=== PATIENT | female | born 1990 | race American Indian/Alaskan Native ===

== ENCOUNTER 2017-01-29 01:41 | Emergency (ER) | payer SELFPAY ==
[2017-01-29] MEDS ORDERED: TYLENOL ONE (02:18)
[2017-01-29] MEDS ORDERED: TYLENOL PO ONE (02:26)
[2017-01-29 08:19] VITALS: BP 125/80
== END 2017-01-29 08:12 | disposition left against medical advice (07) ==
LOC: ED 01:41
DX: H57.12 Ocular pain, left eye (principal); I10 Essential (primary) hypertension; D57.00 Hb-SS disease with crisis, unspecified; F12.90 Cannabis use, unspecified, uncomplicated; Z53.21 Procedure and treatment not carried out due to patient leaving prior to being seen by health care provider

== ENCOUNTER 2017-05-02 00:01 | Emergency (ER) | payer SELFPAY ==
[2017-05-02 05:37] LABS: Basophils % (Auto) 0.5 % (0.0-1.8); Eosinophils % (Auto) 0.8 % (0.0-4.3); Hematocrit 38.6 % (30.3-42.9); Hemoglobin 13.2 gm/dl (10.1-14.3); Mean Corpuscular HGB Conc 34 % (30-34); Mean Corpuscular Hemoglobin 31 pg (28-32); Mean Corpuscular Volume 90 fl (79-97); Platelet Count 194 K/mm3 (140-440); Red Blood Count 4.29 M/mm3 (3.65-5.03); Red Cell Distribution Width 13.6 % (13.2-15.2); White Blood Count 8.9 K/mm3 (4.5-11.0)
[2017-05-02 05:47] LABS: Anion Gap 21 mmol/L; BUN/Creatinine Ratio 8.88; Blood Urea Nitrogen 8 mg/dL (7-17); Calcium 9.3 mg/dL (8.4-10.2); Carbon Dioxide 22 mmol/L (22-30); Chloride 102.3 mmol/L (98-107); Glucose 88 mg/dL (65-100); Potassium 3.8 mmol/L (3.6-5.0); Sodium 141 mmol/L (137-145)
--- NOTE | 2017-05-02 06:15 | Emergency Department Report ---
ED ENT HPI - General Chief complaint: Sore Throat Stated complaint: NECK PAIN/POSS THYROID Time Seen by Provider: 05/02/17 05:04 Source: patient Mode of arrival: Ambulatory Limitations: No Limitations - History of Present Illness Initial comments: 26-year-old female past medical history hypothyroid disease on methimazole presents with complaint of 3 weeks of mild throat discomfort. Patient is awake alert and oriented 3 slightly hoarse voice no audible wheezing or stridor. Denies any fevers chills nausea vomiting. Slightly decreased appetite. Patient is tolerating solids and liquids without significant difficulty. Patient states she came to the ER because she does not currently have a means to follow-up with primary care if she does not have insurance. Patient denies any chest pain palpitations shortness of breath. MD complaint: sore throat Onset/Timin -: week(s) Location: throat Severity scale (0 -10): 4 Quality: aching Associated Symptoms: sore throat - Related Data Previous Rx's Medication Instructions Recorded Last Taken Type Labetalol [Normodyne TAB] 200 mg PO BID #60 tablet 03/15/15 Unknown Rx Ibuprofen [Motrin 600 MG tab] 600 mg PO Q8H PRN #30 tablet 05/29/16 Unknown Rx Mupirocin [Bactroban 2%] 1 applic TP TID #1 tube 05/29/16 Unknown Rx Sulfamethoxazole/Trimethoprim 1 each PO BID #20 tablet 05/29/16 Unknown Rx [Bactrim DS TAB] Amoxicillin [Trimox CAP] 500 mg PO Q8H #21 capsule 05/02/17 Unknown Rx Ibuprofen [Motrin] 600 mg PO Q8H PRN #25 tablet 05/02/17 Unknown Rx Allergies Allergy/AdvReac Type Severity Reaction Status Date / Time No Known Allergies Allergy Verified 07/31/14 17:18 ED Dental HPI - General Chief complaint: Sore Throat Stated complaint: NECK PAIN/POSS THYROID Time Seen by Provider: 05/02/17 05:04 Source: patient Mode of arrival: Ambulatory Limitations: No Limitations - Related Data Previous Rx's Medication Instructions Recorded Last Taken Type Labetalol [Normodyne TAB] 200 mg PO BID #60 tablet 03/15/15 Unknown Rx Ibuprofen [Motrin 600 MG tab] 600 mg PO Q8H PRN #30 tablet 05/29/16 Unknown Rx Mupirocin [Bactroban 2%] 1 applic TP TID #1 tube 05/29/16 Unknown Rx Sulfamethoxazole/Trimethoprim 1 each PO BID #20 tablet 05/29/16 Unknown Rx [Bactrim DS TAB] Amoxicillin [Trimox CAP] 500 mg PO Q8H #21 capsule 05/02/17 Unknown Rx Ibuprofen [Motrin] 600 mg PO Q8H PRN #25 tablet 05/02/17 Unknown Rx Allergies Allergy/AdvReac Type Severity Reaction Status Date / Time No Known Allergies Allergy Verified 07/31/14 17:18 ED Review of Systems ROS: Stated complaint: NECK PAIN/POSS THYROID Other details as noted in HPI Constitutional: denies: chills, fever Eyes: denies: eye pain, eye discharge, vision change ENT: throat pain. denies: ear pain Respiratory: denies: cough, shortness of breath, wheezing Cardiovascular: denies: chest pain, palpitations Endocrine: no symptoms reported Gastrointestinal: denies: abdominal pain, nausea, diarrhea Genitourinary: denies: urgency, dysuria, discharge Musculoskeletal: denies: back pain, joint swelling, arthralgia Skin: denies: rash, lesions Neurological: denies: headache, weakness, paresthesias Psychiatric: denies: anxiety, depression Hematological/Lymphatic: denies: easy bleeding, easy bruising ED Past Medical Hx - Past Medical History Previous Medical History?: Yes Hx Hypertension: No (PIH) Hx CVA: No Hx Heart Attack/AMI: No Hx Congestive Heart Failure: No Hx Diabetes: No Hx Deep Vein Thrombosis: No Hx Pulmonary Embolism: No Hx GERD: No Hx Liver Disease: No Hx Renal Disease: No Hx of Cancer: No Hx Sickle Cell Disease: Yes (Traits) Hx Arthritis: No Hx Headaches / Migraines: No Hx Seizures: No Hx Kidney Stones: No Hx Psychiatric Treatment: No Hx Asthma: No Hx COPD: No Hx Tuberculosis: No Hx Dementia: No Hx HIV: No Additional medical history: HYPERTHYRODISM - Surgical History Past Surgical History?: No Hx Coronary Stent: No Hx Open Heart Surgery: No Hx Pacemaker: No Hx Internal Defibrillator: No Hx Cholecystectomy: No Hx Appendectomy: No Hx Breast Surgery: No - Social History Smoking Status: Never Smoker Substance Use Type: Alcohol, Marijuana - Medications Home Medications: Home Medications Medication Instructions Recorded Confirmed Last Taken Type Labetalol [Normodyne TAB] 200 mg PO BID #60 tablet 03/15/15 Unknown Rx Ibuprofen [Motrin 600 MG tab] 600 mg PO Q8H PRN #30 tablet 05/29/16 Unknown Rx Mupirocin [Bactroban 2%] 1 applic TP TID #1 tube 05/29/16 Unknown Rx Sulfamethoxazole/Trimethoprim 1 each PO BID #20 tablet 05/29/16 Unknown Rx [Bactrim DS TAB] Amoxicillin [Trimox CAP] 500 mg PO Q8H #21 capsule 05/02/17 Unknown Rx Ibuprofen [Motrin] 600 mg PO Q8H PRN #25 tablet 05/02/17 Unknown Rx ED Physical Exam - General Limitations: No Limitations General appearance: alert, in no apparent distress - Head Head exam: Present: atraumatic, normocephalic - Eye Eye exam: Present: normal appearance, PERRL, EOMI - ENT ENT exam: Present: mucous membranes moist - Expanded ENT Exam Expanded Throat exam: Positive: normal inspection - Neck Neck exam: Present: normal inspection, full ROM, other (no palpable thryoid nodules on exam) - Respiratory Respiratory exam: Present: normal lung sounds bilaterally. Absent: respiratory distress - Cardiovascular Cardiovascular Exam: Present: regular rate, normal rhythm. Absent: systolic murmur, diastolic murmur, rubs, gallop - GI/Abdominal GI/Abdominal exam: Present: soft, normal bowel sounds - Extremities Exam Extremities exam: Present: normal inspection - Back Exam Back exam: Present: normal inspection - Neurological Exam Neurological exam: Present: alert, oriented X3 - Psychiatric Psychiatric exam: Present: normal affect, normal mood - Skin Skin exam: Present: warm, dry, intact, normal color. Absent: rash ED Course Vital Signs 05/02/17 01:33 Temperature 99 F Pulse Rate 68 Respiratory 16 Rate Blood Pressure 123/79 O2 Sat by Pulse 100 Oximetry ED Medical Decision Making - Lab Data Result diagrams: 05/02/17 05:11 05/02/17 05:11 - Medical Decision Making A/P: neck/Throat discomfort, thyroid function check 1-Motrin when necessary, strep swab sent 2-x-ray shows nonspecific changes, suggestion of mild tonsillar swelling 3-will cover patient empirically with amoxicillin as patient does have very mild tonsillar erythema on exam 4-is tolerating by mouth fluid and food without difficulty, vital signs stable 5- TSH and free T4 suggestive of subclinical hypothyroidism, pt to f/u with PMD Critical care attestation.: If time is entered above; I have spent that time in minutes in the direct care of this critically ill patient, excluding procedure time. ED Disposition Clinical Impression: Throat disorder, Thyroid disease Disposition: TO HOME OR SELFCARE Is pt being admited?: No Does the pt Need Aspirin: No Condition: Stable Instructions: Tonsillitis (ED), Hypothyroidism (ED) Prescriptions: Amoxicillin [Trimox CAP] 500 mg PO Q8H #21 capsule Ibuprofen [Motrin] 600 mg PO Q8H PRN #25 tablet PRN Reason: Pain Referrals: LELAND GEE MD [Primary Care Provider] - 3-5 Days [facility] [Outside] - 3-5 Days [facility] [Outside] - 3-5 Days CATRACHO LABOY MD [Staff Physician] - 3-5 Days Forms: Work/School Release Form(ED) Time of Disposition: 06:58
--- NOTE | 2017-05-02 06:35 | XRay Report ---
FINAL REPORT EXAM: XR NECK SOFT TISSUE HISTORY: anterior neck discomfort, fb sensation throat TECHNIQUE: Soft tissue neck radiographs, two views PRIORS: None. FINDINGS: The epiglottis is poorly visualized on the lateral view. I cannot confirm or exclude enlargement. There is some soft tissue prominence towards the tongue base which could be lingual tonsil enlargement. The prevertebral soft tissues are normal. IMPRESSION: Poor visualization of the epiglottis on the lateral view. I cannot confirm or exclude epiglottis enlargement. Some soft tissue prominence towards the base of the tongue seen which could be enlargement of the lingual tonsils.
[2017-05-02 07:10] VITALS: BP 112/76
== END 2017-05-02 07:17 | disposition home or self-care (01) ==
LOC: ED 00:01
DX: E07.9 Disorder of thyroid, unspecified (principal); E05.90 Thyrotoxicosis, unspecified without thyrotoxic crisis or storm; F12.10 Cannabis abuse, uncomplicated
CPT/HCPCS: 36415; 70360; 80048; 81025; 84439; 84443; 85025; 99283

== ENCOUNTER 2019-03-12 01:02 | Emergency (ER) | payer OTHER ==
[2019-03-12 02:07] LABS: Hematocrit 39.7 % (30.3-42.9); Hemoglobin 13.4 gm/dl (10.1-14.3); Red Blood Count 4.25 M/mm3 (3.65-5.03)
[2019-03-12 02:08] LABS: Mean Corpuscular HGB Conc 34 % (30-34); Mean Corpuscular Volume 93 fl (79-97); Platelet Count 209 K/mm3 (140-440); Red Cell Distribution Width 13.4 % (13.2-15.2)
[2019-03-12 02:09] LABS: Basophils # (Auto) 0.1 K/mm3 (0.0-0.1); Basophils % (Auto) 0.7 % (0.0-1.8); Eosinophils % (Auto) 0.2 % (0.0-4.3); Lymphocytes # (Auto) 4.4 K/mm3 (1.2-5.4); Lymphocytes % (Auto) 44.9 % (13.4-35.0); Monocytes # (Auto) 0.6 K/mm3 (0.0-0.8); Monocytes % (Auto) 6.2 % (0.0-7.3)
[2019-03-12 02:10] LABS: Alanine Aminotransferase 11 units/L (7-56); Albumin 4.4 g/dL (3.9-5); BUN/Creatinine Ratio 12; Blood Urea Nitrogen 14 mg/dL (7-17); Calcium 9.9 mg/dL (8.4-10.2); Hemolysis Index 16
--- NOTE | 2019-03-12 07:32 | Emergency Department Report ---
ED General Adult HPI - General Chief complaint: Dyspnea/Respdistress Stated complaint: UP SET Source: patient Mode of arrival: Ambulatory Limitations: No Limitations - History of Present Illness Initial comments: This 28-year-old [place] female who presents with shortness of breath and feelings of anxiety for few days. Past medical history of hyperthyroidism. Patient states when anxiety occurs she have difficulty breathing, tingling in hands and feet. She is concerned of possible or symptoms may be related to hyperthyroidism. Patient states her medication was changed by her PCP at [facility] 2 months ago. Patient states she is taken methamazole 5 mg P by mouth twice a day and cyproheptadine 4 mg twice a day. Onset/Timin -: days(s) Severity scale (0 -10): 0 Improves with: none Worsens with: none Associated Symptoms: shortness of breath. denies: confusion, chest pain, cough, diaphoresis, fever/chills, headaches, malaise, nausea/vomiting, rash, seizure, syncope, weakness - Related Data Previous Rx's Medication Instructions Recorded Last Taken Type RX: Labetalol [Normodyne TAB] 200 mg PO BID #60 tablet 03/15/15 Unknown Rx Mupirocin [Bactroban 2%] 1 applic TP TID #1 tube 05/29/16 Unknown Rx RX: Ibuprofen [Motrin 600 MG tab] 600 mg PO Q8H PRN #30 tablet 05/29/16 Unknown Rx Sulfamethoxazole/Trimethoprim 1 each PO BID #20 tablet 05/29/16 Unknown Rx [Bactrim DS TAB] Ibuprofen [Motrin] 600 mg PO Q8H PRN #25 tablet 05/02/17 Unknown Rx RX: Amoxicillin [Trimox CAP] 500 mg PO Q8H #21 capsule 05/02/17 Unknown Rx hydrOXYzine HCL [Atarax] 25 mg PO Q6HR PRN #12 tablet 03/12/19 Unknown Rx Allergies Allergy/AdvReac Type Severity Reaction Status Date / Time No Known Allergies Allergy Verified 07/31/14 17:18 ED Review of Systems ROS: Stated complaint: UP SET Other details as noted in HPI Constitutional: denies: chills, fever Respiratory: shortness of breath. denies: cough, wheezing Cardiovascular: denies: chest pain, palpitations Gastrointestinal: denies: abdominal pain, nausea, diarrhea Musculoskeletal: denies: back pain, joint swelling, arthralgia Skin: denies: rash, lesions Neurological: denies: headache, weakness, paresthesias Psychiatric: anxiety. denies: depression ED Past Medical Hx - Past Medical History Previous Medical History?: Yes Hx Hypertension: No (PIH) Hx CVA: No Hx Heart Attack/AMI: No Hx Congestive Heart Failure: No Hx Diabetes: No Hx Deep Vein Thrombosis: No Hx Pulmonary Embolism: No Hx GERD: No Hx Liver Disease: No Hx Renal Disease: No Hx Sickle Cell Disease: Yes (Traits) Hx Arthritis: No Hx Headaches / Migraines: No Hx Seizures: No Hx Kidney Stones: No Hx Psychiatric Treatment: No Hx Asthma: No Hx COPD: No Hx Tuberculosis: No Hx Dementia: No Hx HIV: No Additional medical history: HYPERTHYRODISM - Surgical History Past Surgical History?: No Hx Coronary Stent: No Hx Open Heart Surgery: No Hx Pacemaker: No Hx Internal Defibrillator: No Hx Cholecystectomy: No Hx Appendectomy: No Hx Breast Surgery: No - Social History Smoking Status: Current Every Day Smoker Substance Use Type: None - Medications Home Medications: Home Medications Medication Instructions Recorded Confirmed Last Taken Type RX: Labetalol [Normodyne TAB] 200 mg PO BID #60 tablet 03/15/15 Unknown Rx Mupirocin [Bactroban 2%] 1 applic TP TID #1 tube 05/29/16 Unknown Rx RX: Ibuprofen [Motrin 600 MG tab] 600 mg PO Q8H PRN #30 tablet 05/29/16 Unknown Rx Sulfamethoxazole/Trimethoprim 1 each PO BID #20 tablet 05/29/16 Unknown Rx [Bactrim DS TAB] Ibuprofen [Motrin] 600 mg PO Q8H PRN #25 tablet 05/02/17 Unknown Rx RX: Amoxicillin [Trimox CAP] 500 mg PO Q8H #21 capsule 05/02/17 Unknown Rx hydrOXYzine HCL [Atarax] 25 mg PO Q6HR PRN #12 tablet 03/12/19 Unknown Rx ED Physical Exam - General Limitations: No Limitations General appearance: alert, in no apparent distress - Respiratory Respiratory exam: Present: normal lung sounds bilaterally. Absent: respiratory distress - Cardiovascular Cardiovascular Exam: Present: regular rate, normal rhythm. Absent: systolic murmur, diastolic murmur, rubs, gallop - GI/Abdominal GI/Abdominal exam: Present: soft, normal bowel sounds. Absent: distended, tenderness, guarding, rebound, rigid - Neurological Exam Neurological exam: Present: alert, oriented X3, normal gait - Psychiatric Psychiatric exam: Present: normal affect, normal mood - Skin Skin exam: Present: warm, dry, intact, normal color. Absent: rash ED Course Vital Signs 03/12/19 03/12/19 03/12/19 01:07 01:12 05:10 Temperature 98.4 F 98.4 F Pulse Rate 115 H 119 H Respiratory 18 22 18 Rate Blood Pressure 145/79 Blood Pressure 145/79 [Right] O2 Sat by Pulse 100 100 Oximetry 03/12/19 03/12/19 08:31 10:33 Temperature 98.7 F Pulse Rate 77 Respiratory 16 16 Rate Blood Pressure 109/61 Blood Pressure [Right] O2 Sat by Pulse 81 L 100 Oximetry Vital Signs 03/12/19 03/12/19 03/12/19 01:07 01:12 05:10 Temperature 98.4 F 98.4 F Pulse Rate 115 H 119 H Respiratory 18 22 18 Rate Blood Pressure 145/79 Blood Pressure 145/79 [Right] O2 Sat by Pulse 100 100 Oximetry 03/12/19 03/12/19 08:31 10:33 Temperature 98.7 F Pulse Rate 77 Respiratory 16 16 Rate Blood Pressure 109/61 Blood Pressure [Right] O2 Sat by Pulse 81 L 100 Oximetry ED Medical Decision Making - Lab Data Result diagrams: 03/12/19 01:26 03/12/19 01:26 Lab Results 03/12/19 03/12/19 03/12/19 Range/Units 01:26 01:26 01:26 WBC 9.7 (4.5-11.0) K/mm3 RBC 4.25 (3.65-5.03) M/mm3 Hgb 13.4 (10.1-14.3) gm/dl Hct 39.7 (30.3-42.9) % MCV 93 (79-97) fl MCH 32 (28-32) pg MCHC 34 (30-34) % RDW 13.4 (13.2-15.2) % Plt Count 209 (140-440) K/mm3 Lymph % (Auto) 44.9 H (13.4-35.0) % [place] % (Auto) 6.2 (0.0-7.3) % Eos % (Auto) 0.2 (0.0-4.3) % Baso % (Auto) 0.7 (0.0-1.8) % Lymph # 4.4 (1.2-5.4) K/mm3 [place] # 0.6 (0.0-0.8) K/mm3 Eos # 0.0 (0.0-0.4) K/mm3 Baso # 0.1 (0.0-0.1) K/mm3 Seg Neutrophils % 48.0 (40.0-70.0) % Seg Neutrophils # 4.7 (1.8-7.7) K/mm3 Sodium 138 (137-145) mmol/L Potassium 3.0 L (3.6-5.0) mmol/L Chloride 102.6 (98-107) mmol/L Carbon Dioxide 18 L (22-30) mmol/L Anion Gap 20 mmol/L BUN 14 (7-17) mg/dL Creatinine 1.2 (0.7-1.2) mg/dL Estimated GFR > 60 ml/min BUN/Creatinine Ratio 12 % Glucose 104 H (65-100) mg/dL Calcium 9.9 (8.4-10.2) mg/dL Total Bilirubin 1.30 H (0.1-1.2) mg/dL AST 18 (5-40) units/L ALT 11 (7-56) units/L Alkaline Phosphatase 62 (35-129) units/L Total Protein 7.8 (6.3-8.2) g/dL Albumin 4.4 (3.9-5) g/dL Albumin/Globulin Ratio 1.3 % TSH 10.600 H (0.270-4.200) mlU/mL Thyroxine (T4) (4.0-12.0) ug/dL HCG, Qual (Negative) 03/12/19 03/12/19 Range/Units 07:56 07:56 WBC (4.5-11.0) K/mm3 RBC (3.65-5.03) M/mm3 Hgb (10.1-14.3) gm/dl Hct (30.3-42.9) % MCV (79-97) fl MCH (28-32) pg MCHC (30-34) % RDW (13.2-15.2) % Plt Count (140-440) K/mm3 Lymph % (Auto) (13.4-35.0) % [place] % (Auto) (0.0-7.3) % Eos % (Auto) (0.0-4.3) % Baso % (Auto) (0.0-1.8) % Lymph # (1.2-5.4) K/mm3 [place] # (0.0-0.8) K/mm3 Eos # (0.0-0.4) K/mm3 Baso # (0.0-0.1) K/mm3 Seg Neutrophils % (40.0-70.0) % Seg Neutrophils # (1.8-7.7) K/mm3 Sodium (137-145) mmol/L Potassium (3.6-5.0) mmol/L Chloride (98-107) mmol/L Carbon Dioxide (22-30) mmol/L Anion Gap mmol/L BUN (7-17) mg/dL Creatinine (0.7-1.2) mg/dL Estimated GFR ml/min BUN/Creatinine Ratio % Glucose (65-100) mg/dL Calcium (8.4-10.2) mg/dL Total Bilirubin (0.1-1.2) mg/dL AST (5-40) units/L ALT (7-56) units/L Alkaline Phosphatase (35-129) units/L Total Protein (6.3-8.2) g/dL Albumin (3.9-5) g/dL Albumin/Globulin Ratio % TSH (0.270-4.200) mlU/mL Thyroxine (T4) 5.5 (4.0-12.0) ug/dL HCG, Qual Negative (Negative) - Medical Decision Making Patient was examined by me. Vitals are normal and patient is in no acute distress. Obtained CBC, CMP, TSH, hCG, & T3, T4. Hypokalemia, given klor-con 40 mEq po once. All other labs unremarkable. Findings are susceptible of anxiety and subclinical hypothyroidism. Start Atarax for anxiety. Instructed to follow up with PCP at [facility] for management of thyroid. Plan discussed with patient who agrees with ER plan. Patient was discharged home stable. Follow up with PCP in 2-3 days. Critical care attestation.: If time is entered above; I have spent that time in minutes in the direct care of this critically ill patient, excluding procedure time. ED Disposition Clinical Impression: Anxiety, Subclinical hypothyroidism Disposition: - TO HOME OR SELFCARE Is pt being admited?: No Does the pt Need Aspirin: No Condition: Stable Instructions: Hypothyroidism (ED) Additional Instructions: Follow-up with your primary care provider at [facility]. Prescriptions: hydrOXYzine HCL [Atarax] 25 mg PO Q6HR PRN #12 tablet PRN Reason: Anxiety Referrals: ELISABETH ADAME MD [Primary Care Provider] - 3-5 Days [facility] [Outside] - 3-5 Days [facility] [Outside] - 3-5 Days Forms: Work/School Release Form(ED) Time of Disposition: 10:25
[2019-03-12 08:48] VITALS: BP 109/61
[2019-03-12] MEDS ORDERED: K-DUR PO ONE (10:03)
== END 2019-03-12 10:38 | disposition home or self-care (01) ==
LOC: ED 01:02
DX: E02 Subclinical iodine-deficiency hypothyroidism (principal); F41.9 Anxiety disorder, unspecified; F17.200 Nicotine dependence, unspecified, uncomplicated; D57.3 Sickle-cell trait; Z79.899 Other long term (current) drug therapy; E05.90 Thyrotoxicosis, unspecified without thyrotoxic crisis or storm
CPT/HCPCS: 36415; 80053; 84436; 84443; 84481; 84703; 85025; 99283

== ENCOUNTER 2020-04-20 16:56 | Emergency (ER) | payer SELFPAY ==
[2020-04-20 17:08] VITALS: BP 132/83
--- NOTE | 2020-04-20 17:16 | Emergency Department Report ---
Chief Complaint: Urogenital-Female Stated Complaint: STD - HPI History of Present Illness: 29-year-old -N[place]ian female presents to the emergency room concern for STD exposure with foul-smelling vaginal discharge and urinary frequency. Patient denies any fever chills no nausea no vomiting. Patient states that she has fullness when she goes to the bathroom. Patient reports that she is followed by [facility] - Exam Vital Signs: Vital Signs 04/20/20 17:03 Temperature 99.1 F Pulse Rate 81 Respiratory 16 Rate Blood Pressure 132/83 O2 Sat by Pulse 99 Oximetry Physical Exam: Patient is alert and oriented nontoxic in appearance no acute distress. Patient is ambulatory without difficulty or distress. MSE screening note: Focused history and physical exam performed. Due to findings the following was ordered: 29-year-old -[place]ian female presents to the emergency room concern for STD exposure with foul-smelling vaginal discharge and urinary frequency. Patient denies any fever chills no nausea no vomiting. Patient states that she has fullness when she goes to the bathroom. Patient reports that she is followed by [facility] Discussed with patient she can follow-up with Dr. Petrona Morales or health department or PLANNING CONSULTANT. ED Disposition for MSE Disposition: MED SCREENING EXAM-LEFT Is pt being admited?: No Does the pt Need Aspirin: No Condition: Stable Additional Instructions: Discussed with patient she can follow-up with Dr. Petrona Morales or health department or PLANNING CONSULTANT. Referrals: [facility] [Outside] - 3-5 Days [facility] [Outside] - 3-5 Days JAYLON MUSTAFA MD [Staff Physician] - 3-5 Days
== END 2020-04-20 17:39 | disposition left against medical advice (07) ==
LOC: ED 16:56
DX: M79.641 Pain in right hand (principal); Z53.21 Procedure and treatment not carried out due to patient leaving prior to being seen by health care provider

== ENCOUNTER 2021-08-20 18:50 | Emergency (ER) | payer MEDICAID ==
[2021-08-20 20:02] VITALS: BP 109/71
[2021-08-20] MEDS ORDERED: PROCHLORPERAZINE EDISYLATE 10 MG/2 ML VIAL IV ONE (20:13)
[2021-08-20] MEDS ORDERED: SODIUM CHLORIDE 0.9% 1000 ML 1,000 ML IV ONE (20:13)
[2021-08-20] MEDS ORDERED: FAMOTIDINE 20 MG/2 ML INJ IV ONE ×2 (20:13→23:22)
[2021-08-20 21:25] LABS: Basophils % (Auto) 0.3 % (0.0-1.8); Eosinophils % (Auto) 0.1 % (0.0-4.3); Hematocrit 42.8 % (30.3-42.9); Hemoglobin 14.9 gm/dl (10.1-14.3); Lymphocytes # (Auto) 2.2 K/mm3 (1.2-5.4); Lymphocytes % (Auto) 21.1 % (13.4-35.0); Mean Corpuscular HGB Conc 35 % (30-34); Mean Corpuscular Volume 93 fl (79-97); Monocytes # (Auto) 1.1 K/mm3 (0.0-0.8); Monocytes % (Auto) 10.4 % (0.0-7.3); Platelet Count 239 K/mm3 (140-440); Red Blood Count 4.62 M/mm3 (3.65-5.03)
[2021-08-20 21:29] LABS: Alanine Aminotransferase 9 units/L (7-56); Albumin 4.6 g/dL (3.9-5); BUN/Creatinine Ratio 19; Blood Urea Nitrogen 13 mg/dL (7-17); Calcium 10.2 mg/dL (8.4-10.2); Hemolysis Index 5
[2021-08-20] MEDS ORDERED: SODIUM CHLORIDE 0.9% 1000 ML 1,000 ML ONE (23:21)
--- NOTE | 2021-08-20 23:31 | Emergency Department Report ---
ED N/V/D HPI - General Chief complaint: Medical Clearance Stated complaint: PREGNACY CHECK Source: patient Mode of arrival: Ambulatory Limitations: No Limitations - History of Present Illness Initial comments: Patient is a A0 30 yo AA female who is approximately 7 weeks gestation who presents to the ED with c/o acute onset persistent intractable nausea, vomiting, lack of appetite, generalized weakness and fatigue for the last 1 week, worse in the last 2 days. Patient states that she has not been able to keep anything down due to persistent nausea, vomiting and lack of appetite. Patient denies fever, chills, diarrhea, dysuria, urinary urgency and frequency, vaginal bl eeding or vaginal discharge, cough, sore throat or chest pain and dyspnea. MD complaint: nausea, vomiting, other -: Sudden, week(s) (1) Description of Vomiting: food contents, watery, bilious Associated Abdominal Pain: No Location: diffuse Radiation: none Severity: severe Quality: dull Consistency: intermittent Improves with: none Worsens with: vomiting Context: other (Approximately 6 weeks gestation) Associated Symptoms: denies other symptoms, loss of appetite, malaise, nausea/vomiting. denies: myalgias, cough, diaphoresis, fever/chills, headaches, rash, dysuria, shortness of breath, syncope, weakness - Related Data Previous Rx's Medication Instructions Recorded Last Taken Type labetaloL [Labetalol 200mg TAB] 200 mg PO BID #60 tablet 03/15/15 Unknown Rx Ibuprofen [Motrin 600 MG tab] 600 mg PO Q8H PRN #30 tablet 05/29/16 Unknown Rx Mupirocin [Bactroban 2%] 1 applic TP TID #1 tube 05/29/16 Unknown Rx Sulfamethoxazole/Trimethoprim 1 each PO BID #20 tablet 05/29/16 Unknown Rx [Bactrim DS TAB] Amoxicillin [Trimox CAP] 500 mg PO Q8H #21 capsule 05/02/17 Unknown Rx Ibuprofen [Motrin] 600 mg PO Q8H PRN #25 tablet 05/02/17 Unknown Rx hydrOXYzine HCL [Atarax] 25 mg PO Q6HR PRN #12 tablet 03/12/19 Unknown Rx Famotidine [Pepcid] 20 mg PO BID #60 tablet 08/20/21 Unknown Rx Metoclopramide [Reglan] 10 mg PO Q8H PRN #30 tab 10/07/21 Unknown Rx Promethazine [Phenergan] 25 mg MS Q6HR PRN #20 supp.rect 08/20/21 Unknown Rx Allergies Allergy/AdvReac Type Severity Reaction Status Date / Time No Known Allergies Allergy Verified 08/20/21 19:59 ED Review of Systems ROS: Stated complaint: PREGNACY CHECK Other details as noted in HPI Constitutional: denies: chills, fever Eyes: denies: eye pain, eye discharge, vision change ENT: denies: ear pain, throat pain Respiratory: denies: cough, shortness of breath, wheezing Cardiovascular: denies: chest pain, palpitations Endocrine: no symptoms reported Gastrointestinal: nausea, vomiting. denies: abdominal pain, diarrhea Genitourinary: denies: urgency, dysuria, discharge Musculoskeletal: denies: back pain, joint swelling, arthralgia Skin: denies: rash, lesions Neurological: denies: headache, weakness, paresthesias Psychiatric: denies: anxiety, depression Hematological/Lymphatic: denies: easy bleeding, easy bruising ED Past Medical Hx - Past Medical History Hx Hypertension: Yes (PIH) Hx CVA: No Hx Heart Attack/AMI: No Hx Congestive Heart Failure: No Hx Diabetes: No Hx Deep Vein Thrombosis: No Hx Pulmonary Embolism: No Hx GERD: No Hx Liver Disease: No Hx Renal Disease: No Hx Sickle Cell Disease: Yes (Traits) Hx Arthritis: No Hx Headaches / Migraines: No Hx Seizures: No Hx Kidney Stones: No Hx Psychiatric Treatment: No Hx Asthma: No Hx COPD: No Hx Tuberculosis: No Hx Dementia: No Hx HIV: No Additional medical history: HYPERTHYRODISM - Surgical History Hx Coronary Stent: No Hx Open Heart Surgery: No Hx Pacemaker: No Hx Internal Defibrillator: No Hx Cholecystectomy: No Hx Appendectomy: No Hx Breast Surgery: No - Social History Smoking Status: Former Smoker Substance Use Type: None - Medications Home Medications: Home Medications Medication Instructions Recorded Confirmed Last Taken Type labetaloL [Labetalol 200mg TAB] 200 mg PO BID #60 tablet 03/15/15 Unknown Rx Ibuprofen [Motrin 600 MG tab] 600 mg PO Q8H PRN #30 tablet 05/29/16 Unknown Rx Mupirocin [Bactroban 2%] 1 applic TP TID #1 tube 05/29/16 Unknown Rx Sulfamethoxazole/Trimethoprim 1 each PO BID #20 tablet 05/29/16 Unknown Rx [Bactrim DS TAB] Amoxicillin [Trimox CAP] 500 mg PO Q8H #21 capsule 05/02/17 Unknown Rx Ibuprofen [Motrin] 600 mg PO Q8H PRN #25 tablet 05/02/17 Unknown Rx hydrOXYzine HCL [Atarax] 25 mg PO Q6HR PRN #12 tablet 03/12/19 Unknown Rx Famotidine [Pepcid] 20 mg PO BID #60 tablet 08/20/21 Unknown Rx Metoclopramide [Reglan] 10 mg PO Q8H PRN #30 tab 08/20/21 Unknown Rx Promethazine [Phenergan] 25 mg MS Q6HR PRN #20 supp.rect 08/20/21 Unknown Rx ED Physical Exam - General Limitations: No Limitations General appearance: alert, in no apparent distress - Head Head exam: Present: atraumatic, normocephalic, normal inspection - Eye Eye exam: Present: normal appearance, PERRL, EOMI Pupils: Present: normal accommodation - ENT ENT exam: Present: normal exam, normal orophraynx, mucous membranes moist, TM's normal bilaterally, normal external ear exam - Neck Neck exam: Present: normal inspection, full ROM - Respiratory Respiratory exam: Present: normal lung sounds bilaterally. Absent: respiratory distress, wheezes, rales, rhonchi, chest wall tenderness, accessory muscle use, decreased breath sounds, prolonged expiratory - Cardiovascular Cardiovascular Exam: Present: regular rate, normal rhythm, normal heart sounds. Absent: systolic murmur, diastolic murmur, rubs, gallop - GI/Abdominal GI/Abdominal exam: Present: soft, normal bowel sounds. Absent: tenderness, guarding, rebound, hyperactive bowel sounds, hypoactive bowel sounds, organomegaly - Extremities Exam Extremities exam: Present: normal inspection, full ROM, normal capillary refill - Back Exam Back exam: Present: normal inspection, full ROM. Absent: tenderness, CVA tenderness (R), CVA tenderness (L), muscle spasm, paraspinal tenderness, vertebral tenderness - Neurological Exam Neurological exam: Present: alert, oriented X3, CN II-XII intact, normal gait, reflexes normal - Psychiatric Psychiatric exam: Present: normal affect, normal mood - Skin Skin exam: Present: warm, dry, intact, normal color. Absent: rash ED Course Vital Signs 08/20/21 20:00 Temperature 97.7 F Pulse Rate 94 H Respiratory 16 Rate Blood Pressure 109/71 O2 Sat by Pulse 100 Oximetry ED Medical Decision Making - Lab Data Result diagrams: 08/20/21 20:25 08/20/21 20:25 - Medical Decision Making This is a A0 30 yo AA female who is approximately 7 weeks gestation who presents to the ED with c/o acute onset persistent intractable nausea, vomiting, lack of appetite, generalized weakness and fatigue for the last 1 week, worse in the last 2 days. Patient states that she has not been able to keep anything down due to persistent nausea, vomiting and lack of appetite. In the ED, patient is alert and oriented x 3 and is in no acute distress. Patient was treated for nausea and vomiting, given normal saline 1000 ml IV bolus, antacids. Lab test results were revealed and are all nonactionable. On reevaluation, patient felt better, passed oral fluid challenge in the ED. Patient was discharged home on medication and advised to maintain a clear liquid diet for 12- 24 hours. Patient was advised to follow up with her [facility] physician in 7-10 days for reevaluation. Patient was also advised to return to the ED immediately if symptoms get worse. - Differential Diagnosis Hyperemesis gravidarum; dehydration; GERD; UTI Critical care attestation.: If time is entered above; I have spent that time in minutes in the direct care of this critically ill patient, excluding procedure time. ED Disposition Clinical Impression: Hyperemesis gravidarum, Nausea and vomiting in adult patient, Generalized weakness Disposition: 01 HOME / SELF CARE / HOMELESS Is pt being admited?: No Does the pt Need Aspirin: No Condition: Stable Instructions: Hyperemesis Gravidarum, Nausea and Vomiting, Adult, Pisf-iv-Oopy Additional Instructions: Maintain a clear liquid diet for 12 to 24 hours, drink plenty of fluids, take medication as needed for nausea and vomiting, follow-up with your [facility] [employer] physician in 5 to 7 days for reevaluation. Return to the ED immediately if symptoms get worse with Prescriptions: Famotidine [Pepcid] 20 mg PO BID #60 tablet Promethazine [Phenergan] 25 mg MS Q6HR PRN #20 supp.rect PRN Reason: Nausea And Vomiting Metoclopramide [Reglan] 10 mg PO Q8H PRN #30 tab PRN Reason: Nausea Referrals: TOVA GRIFFIN MD [Primary Care Provider] - 3-5 Days Forms: Work/School Release Form(ED) Time of Disposition: 02:58 Print Language: SAMI
[2021-08-21] MEDS ORDERED: PROCHLORPERAZINE EDISYLATE 10 MG/2 ML VIAL ONE (00:12)
[2021-08-21 02:30] LABS: Bilirubin,Urine NEG (Negative); Blood,Urine NEG (Negative); Color,Urine Yellow (Yellow); Mucus,Urine 2+ /HPF
== END 2021-08-21 03:22 | disposition home or self-care (01) ==
LOC: ED 18:50
DX: O21.0 Mild hyperemesis gravidarum (principal); O26.891 Other specified pregnancy related conditions, first trimester; R53.1 Weakness; I10 Essential (primary) hypertension; Z98.890 Other specified postprocedural states; Z79.899 Other long term (current) drug therapy
CPT/HCPCS: 36415; 80053; 81001; 83690; 84702; 85025; 96361; 96374; 96375; 99283; J0780; J7030

== ENCOUNTER 2022-03-18 16:59 | Observation (INO) | payer MEDICAID ==
[2022-03-18] MEDS ORDERED: LACTATED RINGERS 500 ML IV ONE (17:48)
[2022-03-18] MEDS ORDERED: TERBUTALINE 1 MG/1 ML INJ SUB-Q PRN (22:00)
[2022-03-18] MEDS ORDERED: BUTORPHANOL 2 MG/1 ML INJ IV PRN (22:00)
[2022-03-18] MEDS ORDERED: ACETAMINOPHEN 325 MG TAB PO PRN (23:08)
[2022-03-18] MEDS ORDERED: DOCUSATE SODIUM 100 MG CAP PO PRN (23:08)
[2022-03-19] MEDS ORDERED: NalbUPHINE 10 MG/1 ML INJ IV PRN (08:35)
[2022-03-19] MEDS ORDERED: LACTATED RINGERS 1,000 ML IV ONE (09:00)
[2022-03-19] MEDS ORDERED: OXYTOCIN DRIP 30 UNITS/500 ML BAG IV SCH ×2 (09:00)
[2022-03-19] MEDS ORDERED: AMPICILLIN 2 GM in SODIUM CHLORIDE 0.9% 50 ML IV ONE (09:15)
[2022-03-19] MEDS ORDERED: AMPICILLIN 1 GM in SODIUM CHLORIDE 0.9% 50 ML IV ONE (09:17)
[2022-03-19] MEDS ORDERED: fentaNYL 100 MCG/2 ML INJ IV PRN (09:30)
[2022-03-19] MEDS ORDERED: ONDANSETRON 4 MG/2 ML INJ IV PRN (09:30)
[2022-03-19] MEDS ORDERED: LOPERAMIDE 2 MG CAP PO PRN (09:30)
[2022-03-19] MEDS ORDERED: OXYTOCIN 10 UNIT/1 ML INJ IM PRN (09:30)
[2022-03-19] MEDS ORDERED: TERBUTALINE 1 MG/1 ML INJ SUB-Q PRN (09:30)
[2022-03-19] MEDS ORDERED: CARBOPROST TROMETHAMINE 250 MCG/1 ML INJ IM PRN (09:30)
[2022-03-19 09:42] LABS: Hematocrit 29.2 % (30.3-42.9); Hemoglobin 10.1 gm/dl (10.1-14.3); Mean Corpuscular HGB Conc 35 % (30-34); Mean Corpuscular Volume 89 fl (79-97); Platelet Count 221 K/mm3 (140-440); Red Blood Count 3.28 M/mm3 (3.65-5.03); Red Cell Distribution Width 14.1 % (13.2-15.2)
[2022-03-19] MEDS ORDERED: METHYLERGONOVINE MALEATE 0.2 MG/ML VIAL IM PRN (10:00)
[2022-03-19] MEDS ORDERED: AMPICILLIN/NS 2 GM/100 ML 2 GM/100 ML BAG IV SCH (10:00)
[2022-03-19] MEDS ORDERED: PRENATAL VIT27-FE FUMARATE-FOLIC ACID VIT TAB PO SCH (10:00)
[2022-03-19] MEDS ORDERED: ePHEDrine SULFATE 50 MG/1 ML INJ IV PRN (10:00)
[2022-03-19] MEDS ORDERED: MINERAL OIL 30 ML ORAL LIQD PO PRN (10:00)
[2022-03-19] MEDS ORDERED: LIDOCAINE (2%) 20 MG/1 ML VIAL 20 ML MDV INFILTRATI SCH (10:00)
[2022-03-19] MEDS ORDERED: miSOPROStol 200 MCG TAB PR PRN (10:00)
[2022-03-19] MEDS: LACTATED RINGERS 1,000 ML IV SCH (13:40)
[2022-03-19] MEDS: AMPICILLIN/NS 1 GM/50 ML 1 GM/50 ML BAG IV SCH ×2 (13:40→22:10)
[2022-03-19 13:49] LABS: Bilirubin,Urine NEG (Negative); Blood,Urine MOD (Negative); Color,Urine Yellow (Yellow); Protein,Urine <15 mg/dL mg/dL (Negative); Urobilinogen,Urine < 2.0 mg/dL (<2.0)
--- NOTE | 2022-03-19 13:51 | History and Physical Report ---
History of Present Illness Date of examination: 03/19/22 Date of admission: 03/18/22 23:08 Chief complaint: Admitted last night for observation re regular uterine contractions at 36+ wks gestation. History of present illness: . HERNAN 04/13/22 Past History Past Medical History: no pertinent history, thyroid disease (Hyperthyroidism.) - Obstetrical History Expected Date of Delivery: 04/13/22 Actual Gestation: 36 Week(s) 3 Day(s) : 2 Para: 1 Medications and Allergies Allergies Allergy/AdvReac Type Severity Reaction Status Date / Time No Known Allergies Allergy Verified 08/20/21 19:59 Home Medications Medication Instructions Recorded Confirmed Last Taken Type RX: labetaloL [Labetalol 200mg TAB] 200 mg PO BID #60 tablet 03/15/15 Unknown Rx Mupirocin [Bactroban 2%] 1 applic TP TID #1 tube 05/29/16 Unknown Rx RX: Ibuprofen [Motrin 600 MG tab] 600 mg PO Q8H PRN #30 tablet 05/29/16 Unknown Rx Sulfamethoxazole/Trimethoprim 1 each PO BID #20 tablet 05/29/16 Unknown Rx [Bactrim DS TAB] Ibuprofen [Motrin] 600 mg PO Q8H PRN #25 tablet 05/02/17 Unknown Rx RX: Amoxicillin [Trimox CAP] 500 mg PO Q8H #21 capsule 05/02/17 Unknown Rx hydrOXYzine HCL [Atarax] 25 mg PO Q6HR PRN #12 tablet 03/12/19 Unknown Rx Famotidine [Pepcid] 20 mg PO BID #60 tablet 08/20/21 Unknown Rx Metoclopramide [Reglan] 10 mg PO Q8H PRN #30 tab 08/20/21 Unknown Rx Promethazine [Phenergan] 25 mg NV Q6HR PRN #20 supp.rect 08/20/21 Unknown Rx Active Meds: Active Medications Acetaminophen (Acetaminophen 325 Mg Tab) 650 mg PO Q4H PRN PRN Reason: Pain MILD(1-3)/Fever >100.5/MAXWELL Butorphanol Tartrate (Butorphanol 2 Mg/1 Ml Inj) 2 mg IV Q6H PRN PRN Reason: Pain , Severe (7-10) Last Admin: 03/18/22 22:24 Dose: 2 mg Carboprost Tromethamine (Carboprost Tromethamine 250 Mcg/1 Ml Inj) 250 mcg IM ONCE PRN PRN Reason: Uterine Bleeding Docusate Sodium (Docusate Sodium 100 Mg Cap) 100 mg PO Q12H PRN PRN Reason: Constipation Ephedrine Sulfate (Ephedrine Sulfate 50 Mg/1 Ml Inj) 10 mg IV Q2M PRN PRN Reason: Hypotension Fentanyl (Fentanyl 100 Mcg/2 Ml Inj) 100 mcg IV Q2H PRN PRN Reason: Pain,Severe (7-10) LABOR PAIN Oxytocin/Sodium Chloride (Pitocin/Ns 30 Unit/500ml) 30 units in 500 mls @ 2 mls/hr IV TITR JAVAD; Protocol Lactated Ringer's (Lactated Ringers) 1,000 mls @ 125 mls/hr IV DIRECT JAVAD Last Admin: 03/19/22 13:40 Dose: 125 mls/hr Oxytocin/Sodium Chloride (Pitocin/Ns 30 Unit/500ml) 30 units in 500 mls @ 40 mls/hr IV TITR JAVAD; Protocol Ampicillin Sodium (Ampicillin/Ns 2 Gm/100 Ml) 2 gm in 100 mls @ 100 mls/hr IV ONCE@1000 [facility] Stop: 03/19/22 14:00 Last Admin: 03/19/22 09:50 Dose: 100 mls/hr Ampicillin Sodium (Ampicillin/Ns 1 Gm/50 Ml) 1 gm in 50 mls @ 100 mls/hr IV Q4H JAVAD Last Admin: 03/19/22 13:40 Dose: 100 mls/hr Lidocaine (Lidocaine (2%) 20 Mg/1 Ml Vial 20 Ml Mdv) 20 ml INFILTRATI ONCE@1000 JAVAD Stop: 03/20/22 09:59 Loperamide HCl (Loperamide 2 Mg Cap) 2 mg PO ONCE PRN PRN Reason: give with Hemabate Methylergonovine Maleate (Methylergonovine Maleate 0.2 Mg/Ml Vial) 0.2 mg IM ONCE PRN PRN Reason: Uterine Bleeding Mineral Oil (Mineral Oil 30 Ml Oral Liqd) 30 ml PO QHS PRN PRN Reason: Constipation Misoprostol (Misoprostol 200 Mcg Tab) 800 mcg NV ONCE PRN PRN Reason: Uterine Bleeding Multivitamins/Iron/Calcium ( Ueq10-Fq Fumarate-Folic Acid Vit Tab) 1 each PO QDAY [facility] Nalbuphine HCl (Nalbuphine 10 Mg/1 Ml Inj) 10 mg IV Q2H PRN PRN Reason: Pain, Moderate (4-6) Ondansetron HCl (Ondansetron 4 Mg/2 Ml Inj) 4 mg IV Q8H PRN PRN Reason: Nausea And Vomiting Oxytocin (Oxytocin 10 Unit/1 Ml Inj) 10 unit IM ONCE PRN PRN Reason: Uterine Bleeding Terbutaline Sulfate (Terbutaline 1 Mg/1 Ml Inj) 0.25 mg SUB-Q ONCE PRN PRN Reason: Hyperstimulation/Hypertonicity Review of Systems All systems: negative - Vital Signs Vital signs: Vital Signs Pulse BP Pulse Ox 100 H 122/69 98 03/18/22 17:43 03/18/22 17:43 03/18/22 17:43 Temp Pulse Resp BP Pulse Ox 98.8 F 88 16 110/58 98 03/19/22 07:16 03/19/22 13:44 03/19/22 07:16 03/19/22 07:03 03/19/22 13:44 - Physical Exam Lungs: Positive: Normal air movement Abdomen: Positive: normal appearance, soft, distention, normal bowel sounds Genitourinary (Female): Positive: normal external genitalia Vulva: both: normal Vagina: Positive: normal moisture. Negative: discharge Cervix: Negative: lesion, discharge Uterus: Positive: enlarged, normal contour Anus/Rectum: Positive: normal perianal skin, heme negative. Negative: rectal mass, hemorrhoids Extremities: Positive: normal Deep Tendon Reflex Grade: Normal +2 - Obstetrical FHR: category 1 Uterine Contraction Monitor Mode: External Cervical Dilatation: 2 Cervical Effacement Percentage: 90 station: 0-1 Uterine Contraction Frequency (min): q2mins Uterine Contraction Pattern: Regular Uterine Contraction Intensity: Moderate Results Result Diagrams: 03/19/22 09:12 Abnormal lab results 03/19/22 03/19/22 Range/Units 09:12 09:12 RBC 3.28 L (3.65-5.03) M/mm3 Hct 29.2 L (30.3-42.9) % MCHC 35 H (30-34) % Syphilis IgG/IgM Ab Reactive A (NonReactive) All other labs normal. Assessment and Plan - Patient Problems (1) 36 to 37 weeks gestation of Current Visit: Yes Status: Acute (2) 36 weeks gestation of Current Visit: Yes Status: Acute (3) labor in third trimester Current Visit: Yes Status: Acute Plan to address problem: GBS cultures sent. Started on ampicillin. NICU aware.
[2022-03-20] MEDS: LACTATED RINGERS 1,000 ML IV SCH (03:23)
[2022-03-20] MEDS: AMPICILLIN/NS 1 GM/50 ML 1 GM/50 ML BAG IV SCH ×2 (03:58→08:25)
[2022-03-20 11:19] VITALS: BP 112/60
--- NOTE | 2022-03-20 11:27 | Ultrasound Report ---
US OB BPP wo non-stress, US OB limited INDICATION / CLINICAL INFORMATION: abdominal pain. COMPARISON: None available. FINDINGS: BREATHING MOVEMENT = 2 GROSS BODY MOVEMENT = 2 TONE = 2 QUALITATIVE AMNIOTIC FLUID VOLUME = 2 TOTAL BIOPHYSICAL SCORE = 8/8 PRESENTATION: Cephalic. HEART RATE (beats per minute): 149 Additional findings: The anterior placenta appears unremarkable. There is no lifting or separation of the placenta. No retroplacental hematoma. IMPRESSION: 1. No significant abnormality. biophysical profile = 88 2. No evidence of placental abruption. Signer Name: Coleman Moe MD Signed: 03/20/2022 11:23 AM Workstation Name: [id number]
--- NOTE | 2022-03-20 13:36 | Event Note ---
Date: 03/20/22 Was asleep and in no discomfort. Fetus stable. No contractions being picked up. BPP 06/21. Allowed to go home.
== END 2022-03-20 11:30 | disposition home or self-care (01) ==
LOC: TRG 16:59 → APU 17:00 → TRG 23:08 → LD 23:08
PROVIDERS: ADMIT Obstetrics & Gynecology; ATTEND Obstetrics & Gynecology
DX: O62.9 Abnormality of forces of labor, unspecified (principal); Z20.822 Contact with and (suspected) exposure to COVID-19; O60.03 Preterm labor without delivery, third trimester; O99.283 Endocrine, nutritional and metabolic diseases complicating pregnancy, third trimester; E05.90 Thyrotoxicosis, unspecified without thyrotoxic crisis or storm; Z3A.36 36 weeks gestation of pregnancy
CPT/HCPCS: 36415; 59025; 76815; 76819; 81001; 85014; 85018; 85027; 86592; 86593; 86780; 86850; 86900; 86901; 87116; 96365; 96366; 96372; 96375; G0378; J0290; J0595; J3105; J7120; U0003; 96360

== ENCOUNTER 2022-04-03 07:52 | Inpatient (IN) | payer MEDICAID ==
[2022-04-03] MEDS ORDERED: LOPERAMIDE 2 MG CAP PO PRN (10:00)
[2022-04-03] MEDS ORDERED: CARBOPROST TROMETHAMINE 250 MCG/1 ML INJ IM PRN (10:00)
[2022-04-03] MEDS ORDERED: ACETAMINOPHEN 325 MG TAB PO PRN ×2 (10:00→23:06)
[2022-04-03] MEDS ORDERED: OXYTOCIN DRIP 30 UNITS/500 ML BAG IV SCH ×3 (10:00→23:45)
[2022-04-03] MEDS ORDERED: LIDOCAINE (2%) 20 MG/1 ML VIAL 20 ML MDV INFILTRATI ONE (10:00)
[2022-04-03] MEDS ORDERED: fentaNYL 100 MCG/2 ML INJ IV PRN (10:00)
[2022-04-03] MEDS ORDERED: METHYLERGONOVINE MALEATE 0.2 MG/ML VIAL IM PRN (10:00)
[2022-04-03] MEDS ORDERED: TERBUTALINE 1 MG/1 ML INJ SUB-Q PRN (10:00)
[2022-04-03] MEDS ORDERED: OXYTOCIN 10 UNIT/1 ML INJ IM PRN (10:00)
[2022-04-03] MEDS ORDERED: BUTORPHANOL 2 MG/1 ML INJ IV PRN (10:00)
[2022-04-03] MEDS ORDERED: miSOPROStol 200 MCG TAB PR PRN (10:00)
[2022-04-03] MEDS ORDERED: ePHEDrine SULFATE 50 MG/1 ML INJ IV PRN ×2 (10:00→13:46)
[2022-04-03 12:03] LABS: Hematocrit 29.6 % (30.3-42.9); Hemoglobin 10.3 gm/dl (10.1-14.3); Mean Corpuscular HGB Conc 35 % (30-34); Mean Corpuscular Volume 89 fl (79-97); Platelet Count 228 K/mm3 (140-440); Red Blood Count 3.35 M/mm3 (3.65-5.03)
[2022-04-03] MEDS: LACTATED RINGERS 1,000 ML IV SCH ×2 (12:03→17:29)
[2022-04-03] MEDS ORDERED: NALOXONE 2 MG/2 ML INJ IV PRN (13:46)
--- NOTE | 2022-04-03 13:48 | Anesthesia Consultation ---
Anesthesia Consult and Med Hx Date of service: 04/03/22 - Airway Anesthetic Teeth Evaluation: Poor ROM Head & Neck: Adequate Mental/Hyoid Distance: Adequate Mallampati Class: Class II Intubation Access Assessment: Good - Pulmonary Exam CTA: Yes - Cardiac Exam Cardiac Exam: RRR - Pre-Operative Health Status ASA Pre-Surgery Classification: ASA2 Proposed Anesthetic Plan: Epidural - Pulmonary Hx Smoking: Yes (stop 9months ago) Hx Asthma: No COPD: No Hx Pneumonia: No - Cardiovascular System Hx Hypertension: No Hx Heart Attack/AMI: No Hx Pacemaker: No Hx Internal Defibrillator: No - Central Nervous System Hx Seizures: No Hx Psychiatric Problems: No - Endocrine Hx Renal Disease: No Hx End Stage Renal Disease: No Hx Liver Disease: No Hx Insulin Dependent Diabetes: No Hx Hypothyroidism: No Hx Hyperthyroidism: Yes (no meds) - Hematic Hx Anemia: No Hx Sickle Cell Disease: No - Other Systems Hx Alcohol Use: No Hx Substance Use: No (not since the last 9 months)
--- NOTE | 2022-04-03 13:50 | Progress Note ---
Labor Epidural - Labor Epidural Start Time: 13:29 Stop Time: 13:40 Performed by:: SAVANNA HAYNES Procedure: Patient is requesting epidural for labor pain. H&P and labs reviewed. Procedure explained, questions answered, consent obtained. Patient placed in sitting position with monitors applied. Timeout performed immediately before start of procedure. Prep/drape in usual sterile fashion. Skin localized 3 mL 1% lidocaine at L[3]-L[4] interspace. 17-gauge Touhy epidural needle advanced to HARIS with saline at [6] cm. No blood/CSF noted via epidural needle. Epidural catheter advanced to [10] cm. Negative aspiration for blood and CSF via catheter, negative response to test dose 3 ml 1.5% lidocaine w/ Epi. Sterile dressing applied followed by tape reinforcement. Patient tolerated procedure well. No immediate complications noted.
[2022-04-03] MEDS ORDERED: fentaNYL-BUPIV 2 MCG/ML-0.125% 200 MCG/100 ML BAG EPIDURAL SCH (14:00)
[2022-04-03 18:38] LABS: Hepatitis C Virus Antibody Non-Reactive (NonReactive)
--- NOTE | 2022-04-03 18:50 | History and Physical Report ---
History of Present Illness Date of examination: 04/03/22 Date of admission: 04/03/22 09:52 Chief complaint: Painful labor contractions. History of present illness: 38+4 wks, . HERNAN 04/13/22. Past History Past Medical History: no pertinent history Past Surgical History: no surgical history [employer] History: chlamydia Social history: no significant social history - Obstetrical History Expected Date of Delivery: 04/13/22 Actual Gestation: 38 Week(s) 4 Day(s) : 2 Para: 1 Medications and Allergies Allergies Allergy/AdvReac Type Severity Reaction Status Date / Time No Known Allergies Allergy Verified 08/20/21 19:59 Active Meds: Active Medications Acetaminophen (Acetaminophen 325 Mg Tab) 650 mg PO Q4H PRN PRN Reason: Pain, Mild (1-3) Butorphanol Tartrate (Butorphanol 2 Mg/1 Ml Inj) 1 mg IV Q2H PRN PRN Reason: Pain, Moderate(4-6) LABOR PAIN Last Admin: 04/03/22 11:56 Dose: 1 mg Carboprost Tromethamine (Carboprost Tromethamine 250 Mcg/1 Ml Inj) 250 mcg IM ONCE PRN PRN Reason: Uterine Bleeding Ephedrine Sulfate (Ephedrine Sulfate 50 Mg/1 Ml Inj) 10 mg IV Q2M PRN PRN Reason: Hypotension Ephedrine Sulfate (Ephedrine Sulfate 50 Mg/1 Ml Inj) 10 mg IV Q2M PRN PRN Reason: Hypotension Fentanyl (Fentanyl 100 Mcg/2 Ml Inj) 100 mcg IV Q2H PRN PRN Reason: Pain,Severe (7-10) LABOR PAIN Oxytocin/Sodium Chloride (Pitocin/Ns 30 Unit/500ml) 30 units in 500 mls @ 2 mls/hr IV TITR JAVAD; Protocol Last Titration: 04/03/22 18:27 Dose: 2 ml/hr, 2 mls/hr Lactated Ringer's (Lactated Ringers) 1,000 mls @ 125 mls/hr IV DIRECT JAVAD Last Admin: 04/03/22 17:29 Dose: 125 mls/hr Oxytocin/Sodium Chloride (Pitocin/Ns 30 Unit/500ml) 30 units in 500 mls @ 40 mls/hr IV TITR JAVAD; Protocol Fentanyl/Bupivacaine/Sodium Chlor (Fentanyl-Bupiv 2 Mcg/Ml-0.125%) 200 mcg in 100 mls @ 12 mls/hr EPIDURAL TITR JAVAD; Protocol Last Admin: 04/03/22 14:05 Dose: 12 mls/hr Loperamide HCl (Loperamide 2 Mg Cap) 2 mg PO ONCE PRN PRN Reason: give with Hemabate Methylergonovine Maleate (Methylergonovine Maleate 0.2 Mg/Ml Vial) 0.2 mg IM ONCE PRN PRN Reason: Uterine Bleeding Mineral Oil (Mineral Oil 30 Ml Oral Liqd) 30 ml PO QHS PRN PRN Reason: Constipation Misoprostol (Misoprostol 200 Mcg Tab) 800 mcg PA ONCE PRN PRN Reason: Uterine Bleeding Naloxone HCl (Naloxone 2 Mg/2 Ml Inj) 0.2 mg IV Q5M PRN PRN Reason: Respiratory sedation Oxytocin (Oxytocin 10 Unit/1 Ml Inj) 10 unit IM ONCE PRN PRN Reason: Uterine Bleeding Terbutaline Sulfate (Terbutaline 1 Mg/1 Ml Inj) 0.25 mg SUB-Q ONCE PRN PRN Reason: Hyperstimulation/Hypertonicity Review of Systems All systems: negative Genitourinary: contractions - Vital Signs Vital signs: Vital Signs Pulse Pulse Ox 87 99 04/03/22 08:15 04/03/22 08:15 Temp Pulse Resp BP Pulse Ox 98.2 F 139 H 16 117/66 98 04/03/22 10:42 04/03/22 18:39 04/03/22 10:42 04/03/22 18:11 04/03/22 18:39 - Physical Exam Breasts: Positive: deferred Cardiovascular: Normal S1, Normal S2 Lungs: Positive: Normal air movement Abdomen: Positive: normal appearance, distention Genitourinary (Female): Positive: normal external genitalia Vulva: both: normal Vagina: Positive: normal moisture. Negative: discharge Cervix: Negative: lesion, discharge Uterus: Positive: enlarged, normal contour Anus/Rectum: Positive: normal perianal skin, heme negative. Negative: rectal mass, hemorrhoids Extremities: Positive: normal Deep Tendon Reflex Grade: Normal +2 - Obstetrical FHR: category 1 Uterine Contraction Monitor Mode: External Cervical Dilatation: 4 Cervical Effacement Percentage: 95 station: 0+1 Uterine Contraction Frequency (min): q2-3mins. Uterine Contraction Pattern: Regular Uterine Contraction Intensity: Strong/Firm Results Result Diagrams: 04/03/22 11:20 Abnormal lab results 04/03/22 04/03/22 Range/Units 11:20 17:37 RBC 3.35 L (3.65-5.03) M/mm3 Hct 29.6 L (30.3-42.9) % MCHC 35 H (30-34) % Syphilis IgG/IgM Ab Reactive A (NonReactive) All other labs normal. Assessment and Plan - Patient Problems (1) with 38 completed weeks gestation Current Visit: Yes Status: Acute (2) Active labor at term Current Visit: Yes Status: Acute Plan to address problem: Admitted in L&D, vag delivery expected.
--- NOTE | 2022-04-03 18:53 | Event Note ---
Date: 04/03/22 Fetus and mom stable. ARM done, clear fluid. 5cm dilated. 100% effaced. Station 0+1.
[2022-04-03] MEDS ORDERED: MINERAL OIL 30 ML ORAL LIQD ONE (19:38)
[2022-04-03] MEDS ORDERED: BICITRA ORAL LIQD 30ML PO ONE (21:10)
[2022-04-03] MEDS ORDERED: LIDOCAINE 2%/EPINEPHRINE 1:200,000 VIAL (20 ML) INFILTRATI ONE (21:11)
[2022-04-03] MEDS ORDERED: BICITRA ORAL LIQD 30ML ONE (21:15)
--- NOTE | 2022-04-03 21:34 | Event Note ---
Date: 04/03/22 After 2 hrs of effective pushing station did not improve beyond 0+1. Maternal exhaustion set in and patient declined to push anymore. Fetus is stable. Even though a small fetus, her first vaginal was of a 5lbs 9oz baby. Clinical pelvimetry suspect. Decision was made to proceed to delivery.
[2022-04-03] MEDS ORDERED: ONDANSETRON 4 MG/2 ML INJ ONE (21:53)
[2022-04-03] MEDS ORDERED: FAMOTIDINE 20 MG/2 ML INJ IV NR (22:00)
[2022-04-03] MEDS ORDERED: MINERAL OIL 30 ML ORAL LIQD PO PRN (22:00)
[2022-04-03] MEDS ORDERED: METOCLOPRAMIDE 10 MG/2 ML INJ IV NR (22:00)
[2022-04-03] MEDS ORDERED: LACTATED RINGERS 1,000 ML ONE ×2 (22:13→22:40)
[2022-04-03] MEDS ORDERED: BUPIVACAINE/PF (0.25%) 2.5 MG/ML 30 ML VIAL INFILTRATI ONE (23:03)
[2022-04-03] MEDS ORDERED: dexAMETHasone 20 MG/5 ML VIAL ONE (23:03)
[2022-04-03] MEDS ORDERED: MAGNESIUM HYDROXIDE (MOM) ORAL LIQD UDC PO PRN (23:06)
[2022-04-03] MEDS ORDERED: PROMETHAZINE 25 MG RECT SUPP PR PRN (23:06)
[2022-04-03] MEDS ORDERED: MORPHINE 2 MG/1 ML INJ IV PRN (23:06)
[2022-04-03] MEDS ORDERED: KETOROLAC 30 MG/1 ML INJ IV PRN (23:06)
[2022-04-03] MEDS ORDERED: IBUPROFEN 600 MG TAB PO PRN (23:06)
[2022-04-03] MEDS ORDERED: LANOLIN/ZINC/DIMETHICONE (LANSINOH) 7 GM TP PRN (23:06)
[2022-04-03] MEDS ORDERED: WITCH HAZEL/ GLYCERIN PAD TP PRN (23:06)
[2022-04-03] MEDS ORDERED: IBUPROFEN 800 MG TAB PO PRN (23:06)
[2022-04-03] MEDS ORDERED: MORPHINE 4 MG/1 ML INJ IV PRN (23:06)
[2022-04-03] MEDS ORDERED: SIMETHICONE 80 MG CHEW TAB PO PRN (23:06)
--- NOTE | 2022-04-03 23:15 | Anesthesia Day of Surgery ---
Anesthesia Day of Surgery - Day of Surgery Patient Examined: Yes Patient H&P Reviewed: Yes Patient is NPO: Yes
--- NOTE | 2022-04-03 23:17 | Operative Report ---
Operative Report Operative Report: Date of surgery: 04/03/2022 Preoperative diagnoses: 38 weeks 4 days gestation, spontaneous labor, cephalopelvic disproportion, maternal exhaustion. Postoperative diagnoses: The same. Operation: Lower segment transverse delivery Surgeon:Jayce Bolanos MD Job Recruiter: Valeria Morris CRNA Anesthesia: Epidural block Quantitative blood loss: 592 mL Complications: None Findings: Live baby girl, occiput posterior position with 2 pluses of caput, scores 8/9, weight 7 pounds 9 ounces. The ovaries, fallopian tubes and the uterus were all unremarkable pelvic structures. Procedure in detail: The patient was taken to the operating room and given a spinal block. Patient was placed in the straight supine position and a Rodas catheter was inserted. The patient was prepped in the abdomen. The drapes were placed. A timeout was done. With the go ahead from the welder railcar mechanic, a Pfannenstiel incision was made. This incision was carried across the subcutaneous layer to the fascia which was also divided transversely. The recti abdominis muscle flaps were stripped from the fascia using a combination of blunt and sharp dissections. The muscles were in the midline to gain access to the anterior parietal peritoneum which was divided after excluding any underlying viscera. The access to the peritoneal cavity was then widened by manual stretching. The bladder blade was applied. The utero vesicle peritoneal flap was divided transversely allowing the bladder to be displaced caudally. The uterine incision was placed in the lower segment transversely. The uterine incision was carried to the decidual layer. The uterine incision was extended on both sides using the bandage scissors. The amniotic sac was ruptured with clear fluid. The head was lifted out of the false maternal pelvis and delivered through the incision using fundal pressure. The airways were bulb suctioned beginning with the mouth. Continuing fundal pressure combined with traction on the mandibular processes of the jaw delivered the rest of the baby. The umbilical cord was double cl amped and divided. The baby was carefully transferred to the pediatric team. The placenta was manually removed from the uterine cavity. The uterine cavity was explored and was empty of any placental remnants. The uterine incision was repaired in 2 layers with #1 Vicryl. The surgical line on the uterus was hemostatic. Blood and clots were cleared from the peritoneal cavity. The anterior parietal peritoneum was repaired with #1 Vicryl. The fascia was repaired with #1 Vicryl. The subcutaneous layer was made hemostatic using the Bovie before the skin was closed subcuticularly with 4-0 Vicryl. There were no complications. The qualitative blood loss was 592 mL. All sponges and instrument counts were correct. Patient was safely transferred to the recovery room.
--- NOTE | 2022-04-03 23:46 | Progress Note ---
Regional Anesthesia Block - Regional Anesthesia Block Start Time: 23:38 Stop Time: 23:41 Performed By:: SAVANNA HAYNES Procedure: Patient consented for TAP block for post surgical pain management. Patient identified, monitors placed, and time out performed. TAP identified bilaterally via ultrasound. Skin prepped bilaterally with [chlorhexidine] and [22g stimuplex] needle advanced to the TAP. [Marcaine 0.25% 35ml and Decadron 5mg] injected under ultrasound guidance on the [left] side. [Marcaine 0.25% 35ml and 5mg Decadron 5mg] injected under ultrasound guidance on the [right] side. Negative aspiration every 5mL, No change in heart rate or rhythm. Patient tolerated the procedure well. No apparent complications seen. VSS B/P 117/76 HR 97 SPO2 100%.
[2022-04-04] MEDS: KETOROLAC 30 MG/1 ML INJ IV PRN ×2 (01:14→08:02)
[2022-04-04] MEDS ORDERED: LACTATED RINGERS 1,000 ML IV SCH (01:15)
[2022-04-04] MEDS: ceFAZolin/NS 1 GM/50 ML 1 GM/50 ML BAG IV SCH ×2 (06:25→23:32)
--- NOTE | 2022-04-04 07:39 | Progress Note ---
Assessment and Plan - Patient Problems (1) with 38 completed weeks gestation Current Visit: Yes Status: Resolved (2) Active labor at term Current Visit: Yes Status: Resolved (3) CPD (cephalo-pelvic disproportion) Current Visit: Yes Status: Resolved Qualifiers: Fetus number: single or unspecified fetus Qualified Code(s): O33.5XX0 - Maternal care for disproportion due to unusually large fetus, not applicable or unspecified (4) Status post delivery Current Visit: Yes Status: Acute Plan to address problem: Stable Subjective - Subjective Date of service: 04/04/22 Principal diagnosis: Status post delivery day 1. Interval history: 38+4 wks, . HERNAN 04/13/22. 04/04/22 C/Section for CPD. Patient reports: appetite normal, voiding normally, pain well controlled, ambulating normally [place]: doing well, in NICU Objective - Vital Signs Latest vital signs: Vital Signs Temp Pulse Resp BP BP Pulse Ox Pulse Ox 04/04/22 04:43 98.0 F 91 H 18 129/67 100 04/04/22 04:40 100 04/04/22 04:10 100 04/04/22 03:40 20 04/04/22 01:14 97.9 F 95 H 18 131/70 100 100 04/04/22 00:35 106 H 14 121/76 100 04/04/22 00:30 105 H 14 115/73 100 04/04/22 00:25 100 H 14 121/68 100 04/04/22 00:20 100 H 14 117/70 99 04/04/22 00:15 99 H 14 125/75 99 04/04/22 00:10 102 H 14 110/71 99 04/04/22 00:05 105 H 16 122/74 98 04/04/22 00:00 103 H 16 120/72 99 04/03/22 23:55 114 H 16 112/81 100 04/03/22 23:50 100 H 16 114/71 100 04/03/22 23:45 113 H 16 121/78 100 04/03/22 23:40 102 H 16 118/65 100 04/03/22 23:35 99 H 16 117/70 100 04/03/22 23:30 104 H 16 114/69 100 04/03/22 23:25 112 H 16 112/70 99 04/03/22 23:20 111 H 16 114/63 98 04/03/22 23:15 114 H 16 109/64 98 04/03/22 23:11 98.3 F 116 H 18 115/64 99 04/03/22 21:34 123 H 97 04/03/22 21:29 123 H 97 04/03/22 21:24 117 H 99 04/03/22 21:19 121 H 98 04/03/22 21:18 118 H 91 04/03/22 21:14 120 H 100 05 21:11 123 H 111/55 04/03/22 21:09 120 H 99 04/03/22 21:04 136 H 100 04/03/22 20:59 126 H 97 04/03/22 20:54 122 H 97 04/03/22 20:49 125 H 99 04/03/22 20:44 134 H 98 04/03/22 20:41 133 H 129/55 04/03/22 20:39 120 H 98 04/03/22 20:35 98 04/03/22 20:34 133 H 98 04/03/22 20:29 133 H 99 04/03/22 20:24 126 H 98 04/03/22 20:23 45 L 82 L 04/03/22 20:19 140 H 97 04/03/22 20:14 127 H 99 04/03/22 20:10 123 H 106/56 04/03/22 20:09 137 H 98 04/03/22 20:04 131 H 99 04/03/22 19:59 149 H 99 04/03/22 19:54 141 H 100 04/03/22 19:49 151 H 97 04/03/22 19:44 140 H 99 04/03/22 19:43 141 H 86 04/03/22 19:42 139 H 122/60 04/03/22 19:39 139 H 99 04/03/22 19:34 142 H 100 04/03/22 19:29 136 H 99 04/03/22 19:24 146 H 100 04/03/22 19:19 128 H 100 04/03/22 19:14 153 H 100 05 19:09 156 H 100 05 19:04 150 H 98 05 18:59 145 H 100 05/21/22 18:54 150 H 100 04/03/22 18:53 59 L 78 L 04/03/22 18:49 154 H 98 05 18:44 131 H 100 05 18:39 139 H 98 04/03/22 18:34 153 H 100 05 18:29 131 H 100 04/03/22 18:24 90 93 05 18:19 88 98 05 18:14 92 H 98 04/03/22 18:11 94 H 117/66 04/03/22 18:10 99 H 92 04/03/22 18:09 99 H 99 04/03/22 18:04 106 H 98 04/03/22 17:59 92 H 99 04/03/22 17:54 93 H 99 04/03/22 17:49 103 H 98 04/03/22 17:44 97 H 98 04/03/22 17:42 108 H 118/74 04/03/22 17:39 115 H 99 04/03/22 17:34 140 H 100 04/03/22 17:30 102 H 91 05 17:29 106 H 100 04/03/22 17:24 108 H 100 04/03/22 17:19 90 98 04/03/22 17:14 90 98 04/03/22 17:11 100 H 100/58 04/03/22 17:09 100 H 97 04/03/22 17:04 109 H 99 04/03/22 16:59 108 H 99 04/03/22 16:54 122 H 100 04/03/22 16:49 99 H 96 04/03/22 16:44 108 H 98 04/03/22 16:41 103 H 105/63 05 16:39 99 H 99 04/03/22 16:34 114 H 100 04/03/22 16:29 111 H 99 05 16:24 86 96 05 16:19 91 H 98 05 16:14 86 96 05 16:12 88 103/60 05 16:09 96 H 97 05 16:04 87 97 05 15:59 101 H 98 05 15:54 90 98 05 15:49 100 H 97 05 15:44 108 H 96 05 15:41 108 H 111/67 05 15:39 100 H 97 05 15:34 101 H 97 05 15:29 98 H 97 05 15:24 102 H 96 05 15:19 99 H 98 05 15:14 91 H 97 05 15:11 88 106/55 05 15:09 92 H 99 05 15:04 89 96 05 15:01 89 93 05 14:59 96 H 96 05 14:54 92 H 96 04/03/22 14:49 94 H 97 05 14:44 89 98 05 14:43 88 93/58 04/03/22 14:39 91 H 96 05 14:36 88 94 04/03/22 14:34 89 95 05 14:31 98 H 91 05 14:29 91 H 97 05 14:24 98 H 99 05 14:23 94 H 92 05 14:19 98 H 98 04/03/22 14:14 98 H 97 04/03/22 14:09 87 98 05 14:05 96 H 107/57 04/03/22 14:04 91 H 98 04/03/22 14:01 98 H 108/61 05 13:59 93 H 98 05 13:54 101 H 125/63 98 05 13:49 89 112/55 98 05 13:45 97 H 115/59 05 13:44 95 H 98 05 13:39 96 H 127/64 99 05 13:34 98 H 100 05 13:29 110 H 97 05 13:24 88 98 05 13:19 93 H 99 05 13:14 89 98 05 13:09 108 H 99 05 13:04 92 H 99 0522 12:59 111 H 99 0522 12:54 111 H 99 05//22 12:49 103 H 98 0521/22 12:44 93 H 99 05/22 12:39 95 H 118/60 98 05/21/22 12:34 85 94 05/21/22 12:32 84 94 05/21/22 12:29 90 97 05/22 12:24 88 97 0521/22 12:19 84 96 05/22 12:18 98 H 94 05/22 12:14 95 H 122/69 99 05/22 12:09 99 H 98 05/22 12:04 97 H 97 05/22 11:59 100 H 97 05/22 11:54 95 H 99 05/22 11:49 84 98 05/22 11:44 78 99 05/22 11:39 86 100 05/22 11:34 106 H 99 05/22 11:29 83 98 05/22 11:24 85 99 05/22 11:19 78 97 05/22 11:14 79 99 05/22 11:09 84 99 05/22 11:04 84 99 05//22 10:59 92 H 100 05/22 10:54 85 99 05/22 10:49 97 H 98 05/22 10:44 91 H 98 05/22 10:43 98 05//22 10:42 98.2 F 89 16 121/72 98 05/22 10:39 97 H 97 05/22 10:36 99 H 121/72 05/22 10:34 78 100 05/22 10:15 80 99 05//22 10:10 79 99 05/21/22 10:05 81 98 05/21/22 10:00 78 99 05/21/22 09:55 89 99 05/21/22 09:50 84 99 05/21/22 09:45 77 99 05/21/22 09:40 84 99 05/21/22 09:35 88 99 05/21/22 09:30 84 99 05/21/22 09:25 78 100 05/21/22 09:20 79 99 05/21/22 09:15 77 99 05/21/22 09:10 82 100 05/21/22 09:05 80 99 04/03/22 09:00 83 99 04/03/22 08:55 82 100 04/03/22 08:50 82 99 04/03/22 08:45 83 99 04/03/22 08:40 86 98 04/03/22 08:35 90 99 04/03/22 08:30 94 H 99 04/03/22 08:25 87 99 04/03/22 08:20 92 H 98 04/03/22 08:17 98.4 F 115 H 16 121/67 98 04/03/22 08:16 86 121/67 04/03/22 08:15 87 99 Intake and Output 04/03/22 04/03/22 04/04/22 15:59 23:59 07:59 Intake Total 6.767 689.100 200 Output Total 950 Balance 6.767 689.100 -750 Intake: IV 6.767 689.100 Lactated Ringers 1,000 ml 679.167 @ 125 mls/hr IV DIRECT JAVAD Rx#:[id number] PITOCin/NS 30 UNIT/500ML 6.767 9.933 30 units In 500 ml @ 2 mls/hr IV TITR JAVAD Rx#: [id number] Oral 200 Output: Urine 950 Indwelling 600 Indwelling Catheter 350 Other: Total, Intake Amount 200 Total, Output Amount 350 Weight 64.864 kg Estimated Blood Loss 592 - Exam Lungs: Present: Normal air movement Abdomen: Present: normal appearance, soft Extremities: Present: normal Deep Tendon Reflex Grade: Normal +2 Incision: Present: normal, dry, intact - Labs Labs: Abnormal lab results 04/03/22 04/03/22 Range/Units 11:20 17:37 RBC 3.35 L (3.65-5.03) M/mm3 Hct 29.6 L (30.3-42.9) % MCHC 35 H (30-34) % Syphilis IgG/IgM Ab Reactive A (NonReactive)
[2022-04-04] MEDS: HYDROcodone/ACETAMINOPHEN 5-325 MG TAB PO PRN ×3 (10:10→22:33)
[2022-04-04] MEDS: PRENATAL VIT27-FE FUMARATE-FOLIC ACID VIT TAB PO SCH (10:10)
[2022-04-04 11:20] LABS: Hematocrit 23.7 % (30.3-42.9); Hemoglobin 8.3 gm/dl (10.1-14.3)
[2022-04-04] MEDS ORDERED: ceFAZolin/NS 1 GM/50 ML 1 GM/50 ML BAG IV SCH (14:00)
--- NOTE | 2022-04-04 15:17 | Post Anesthesia Evaluation ---
- Post Anesthesia Evaluation Patient Participated: Yes Airway Patent: Yes Stable Respiratory Function: Yes Nausea/Vomiting: No Temp > 96.8F: Yes Pain Manageable: Yes Adequeate Hydration: Yes Anesthesia Complications: No Block Receding Appropriately: Yes Patient on Ventilator: No
[2022-04-05] MEDS: HYDROcodone/ACETAMINOPHEN 5-325 MG TAB PO PRN ×2 (03:37→10:33)
--- NOTE | 2022-04-05 09:45 | Progress Note ---
Assessment and Plan - Patient Problems (1) with 38 completed weeks gestation Current Visit: Yes Status: Resolved (2) Active labor at term Current Visit: Yes Status: Resolved (3) CPD (cephalo-pelvic disproportion) Current Visit: Yes Status: Resolved Qualifiers: Fetus number: single or unspecified fetus Qualified Code(s): O33.5XX0 - Maternal care for disproportion due to unusually large fetus, not applicable or unspecified (4) Status post delivery Current Visit: Yes Status: Acute Plan to address problem: Stable. Subjective - Subjective Date of service: 04/05/22 Principal diagnosis: Status post delivery day 2. Interval history: 38+4 wks, . HERNAN 04/13/22. 04/04/22 C/Section for CPD. Patient reports: appetite normal, voiding normally, pain well controlled, ambulating normally : doing well Objective - Vital Signs Latest vital signs: Vital Signs Temp Pulse Resp BP BP Pulse Ox Pulse Ox 04/05/22 08:00 99 04/05/22 04:30 99 04/05/22 03:37 18 99 04/05/22 00:21 98.0 F 87 20 113/61 99 04/04/22 23:00 100 04/04/22 22:33 18 100 04/04/22 21:21 97.8 F 87 18 118/50 100 04/04/22 19:30 99 04/04/22 18:00 97.6 F 84 18 109/63 100 04/04/22 12:55 97.6 F 92 H 18 104/73 100 Intake and Output 04/04/22 04/05/22 04/05/22 23:59 07:59 15:59 Intake Total 360 120 Balance 360 120 Intake: Oral 360 120 Other: Total, Intake Amount 120 120 # Voids Indwelling Catheter 1 1 - Exam Lungs: Present: Normal air movement Abdomen: Present: normal appearance, soft, normal bowel sounds Uterus: Present: normal, firm Extremities: Present: normal Deep Tendon Reflex Grade: Normal +2 Incision: Present: normal, dry, intact - Labs Labs: Abnormal lab results 04/04/22 Range/Units 10:57 Hgb 8.3 L (10.1-14.3) gm/dl Hct 23.7 L (30.3-42.9) %
--- NOTE | 2022-04-05 09:48 | Discharge Summary ---
Providers - Providers Date of Admission: 04/03/22 09:52 Date of discharge: 04/05/22 Attending physician: ANICETO TOLENTINO MD Primary care physician: ANICETO TOLENTINO MD Hospitalization Reason for admission: active labor, vaginal bleeding, IUP at term Delivery: Procedure: section Episiotomy: none Laceration: none Incision: normal, dry, intact Other procedures: none complications: none Discharge diagnosis: IUP at term delivered baby: female Condition at discharge: Good Disposition: 01 HOME / SELF CARE / HOMELESS - Discharge Diagnoses (1) with 38 completed weeks gestation Status: Resolved (2) Active labor at term Status: Resolved (3) CPD (cephalo-pelvic disproportion) Status: Resolved Qualifiers: Fetus number: single or unspecified fetus Qualified Code(s): O33.5XX0 - Maternal care for disproportion due to unusually large fetus, not applicable or unspecified (4) Status post delivery Status: Acute Plan - Provider Discharge Summary Activity: routine, no sex for 6 weeks, no heavy lifting 4 weeks, no strenuous exercise Diet: routine Instructions: routine Additional instructions: [] Smoking cessation referral if applicable(refer to patient education folder for contact #) [] Refer to [facility]'s [facility] Booklet Call your doctor immediately for: * Fever > 100.5 * Heavy vaginal bleeding ( >1 pad per hour) * Severe persistent headache * Shortness of breath * Reddened, hot, painful area to leg or breast * Drainage or odor from incision. * Keep incision clean and dry at all times and follow doctor's instructions regarding bathing/showering - Follow up plan Follow up: ANICETO TOLENTINO MD [Primary Care Provider] - 7 Days
[2022-04-05] MEDS: PRENATAL VIT27-FE FUMARATE-FOLIC ACID VIT TAB PO SCH (10:33)
[2022-04-05 14:01] VITALS: BP 97/65
== END 2022-04-05 15:40 | disposition home or self-care (01) | DRG 766 ==
LOC: TRG 07:52 → APU 07:52 → EEVIPCON 09:52 → LD 09:52 → TRG 10:06 → OB 04-04 00:55
PROVIDERS: ADMIT Obstetrics & Gynecology; ATTEND Obstetrics & Gynecology
PROC: 10D00Z1 Extraction of Products of Conception, Low, Open Approach (ICD-10-PCS; principal; 2022-04-03)
DX: O33.9 Maternal care for disproportion, unspecified (principal); O75.81 Maternal exhaustion complicating labor and delivery; O75.0 Maternal distress during labor and delivery; Z3A.38 38 weeks gestation of pregnancy; Z37.0 Single live birth; Z20.822 Contact with and (suspected) exposure to COVID-19
CPT/HCPCS: 36415; 85014; 85018; 85027; 86592; 86593; 86706; 86762; 86780; 86803; 86850; 86900; 86901; 87806; 88307; 99211; G0378; J3490; J7121; G0463; J0595; J0690; J1100; J1885; J2270; J2405; J2590; J2765; J7120; U0003

== ENCOUNTER 2022-08-04 08:07 | Day surgery (SDC) | payer MEDICAID ==
[2022-08-04] MEDS ORDERED: LACTATED RINGERS 1,000 ML ONE (09:11)
[2022-08-04] MEDS ORDERED: ceFAZolin/Water 2 GM/20 ML 2 GM/20 ML SYRINGE IV ONE (09:55)
[2022-08-04] MEDS ORDERED: MIDAZOLAM 2 MG/2 ML INJ ONE (09:59)
[2022-08-04] MEDS ORDERED: LIDOCAINE MPF (2%) 20 MG/1 ML VIAL 5 ML ONE (10:00)
[2022-08-04] MEDS ORDERED: fentaNYL 100 MCG/2 ML INJ ONE (10:00)
[2022-08-04] MEDS ORDERED: ceFAZolin/STERILE WATER 2 GM/20 ML SYRINGE IV NR (10:00)
[2022-08-04] MEDS ORDERED: ONDANSETRON 4 MG/2 ML INJ ONE (10:00)
[2022-08-04] MEDS ORDERED: propofoL 200 MG/20 ML VIAL IV ONE (10:01)
[2022-08-04] MEDS ORDERED: HYDROmorphone 0.5 MG/0.5 ML INJ IV PRN ×2 (10:01)
[2022-08-04] MEDS ORDERED: ONDANSETRON 4 MG/2 ML INJ IV PRN (10:01)
--- NOTE | 2022-08-04 10:02 | Anesthesia Consultation ---
Anesthesia Consult and Med Hx Date of service: 08/04/22 - Airway Anesthetic Teeth Evaluation: Chipped ROM Head & Neck: Adequate Mental/Hyoid Distance: Adequate Mallampati Class: Class II Intubation Access Assessment: Good - Pre-Operative Health Status ASA Pre-Surgery Classification: ASA2 Proposed Anesthetic Plan: General - Pulmonary Hx Smoking: Yes (SMOKES MARIJUANA MULTIPLE X PER DAY) Hx Asthma: No COPD: No Hx Pneumonia: No Hx Sleep Apnea: No (SAÚL PRE SCREEN NEGATIVE) - Cardiovascular System Hx Hypertension: No Hx Heart Attack/AMI: No Hx Pacemaker: No Hx Internal Defibrillator: No - Central Nervous System Hx Seizures: No Hx Psychiatric Problems: No - Gastrointestinal Hx Gastroesophageal Reflux Disease: No - Endocrine Hx Renal Disease: No Hx End Stage Renal Disease: No Hx Liver Disease: No Hx Insulin Dependent Diabetes: No Hx Thyroid Disease: Yes Hx Hypothyroidism: No Hx Hyperthyroidism: Yes (OVER ACTIVE) - Hematic Hx Anemia: No Hx Sickle Cell Disease: No (SC TRAIT ONLY) - Other Systems Hx Alcohol Use: No Hx Substance Use: No (not since the last 9 months) Hx Cancer: No Hx Obesity: No
--- NOTE | 2022-08-04 10:02 | Anesthesia Day of Surgery ---
Anesthesia Day of Surgery - Day of Surgery Patient Examined: Yes Patient H&P Reviewed: Yes Patient is NPO: Yes
--- NOTE | 2022-08-04 10:08 | Operative Report ---
Operative Report Operative Report: Date of surgery: August 04, 2022 Preop diagnosis: SHILPI-2 Postop diagnosis: Same Procedure: Examination under anesthesia, LEEP. Surgeon: Kem Bolanos MD Anesthesiologist: Megan BRODY Anesthesia: GA Complications: None EBL: Less than 2 cc Findings: No gross lesions were seen in the vulva vagina and cervix. Bimanual examination of the pelvis was normal Procedure in detail: With permission from the product safety coordinator a bimanual examination was done. An insulated vaginal speculum was used. A 2 cm diameter loop electrode was used to remove the wedge of the lowest part of the cervix. The base was cauterized with the Bovie and coated with Monsel solution. Hemostasis was excellent. All instruments and sponges were recovered. Patient was taken to the recovery room in excellent condition. There were no complications. EBL was less than 2
[2022-08-04] MEDS ORDERED: FERRIC SUBSULFATE TOPICAL SOLN 8 ML TP ONE (10:15)
[2022-08-04] MEDS ORDERED: LACTATED RINGERS 1,000 ML IV SCH (10:15)
[2022-08-04] MEDS ORDERED: dexAMETHasone 20 MG/5 ML VIAL ONE (10:40)
[2022-08-04] MEDS ORDERED: POTASSIUM IODIDE/IODINE (LUGOLS) 30 ML TOPICAL ONE (10:47)
[2022-08-04] MEDS ORDERED: MIDAZOLAM 2 MG/2 ML INJ IV NR (11:00)
[2022-08-04 11:16] VITALS: BP 109/66
--- NOTE | 2022-08-04 14:00 | Post Anesthesia Evaluation ---
- Post Anesthesia Evaluation Patient Participated: Yes Airway Patent: Yes Stable Respiratory Function: Yes Nausea/Vomiting: No Temp > 96.8F: Yes Pain Manageable: Yes Adequeate Hydration: Yes Anesthesia Complications: No Block Receding Appropriately: Not Applicable Patient on Ventilator: No
== END 2022-08-04 12:00 | disposition home or self-care (01) ==
LOC: OR 08:07
PROVIDERS: ATTEND Obstetrics & Gynecology
DX: N87.1 Moderate cervical dysplasia (principal); G43.909 Migraine, unspecified, not intractable, without status migrainosus; E05.90 Thyrotoxicosis, unspecified without thyrotoxic crisis or storm; F41.9 Anxiety disorder, unspecified; F17.210 Nicotine dependence, cigarettes, uncomplicated; Z79.899 Other long term (current) drug therapy; Z98.891 History of uterine scar from previous surgery; Z83.3 Family history of diabetes mellitus; Z82.49 Family history of ischemic heart disease and other diseases of the circulatory system
CPT/HCPCS: 81025; 88305; 88307; J0690; J1100; J2250; J2405; J2704; J3010; J7120